=== PATIENT | female | born 1995 | race Hispanic/Latino ===

== ENCOUNTER 2018-04-27 10:36 | Emergency (ER) | payer OTHER ==
[2018-04-27] MEDS ORDERED: LIDOCAINE HCL 2% VISCOUS 15 ML UDCUP ONE (11:03)
== END 2018-04-27 11:39 | disposition home or self-care (01) ==
LOC: EDH 10:36
DX: F41.9 Anxiety disorder, unspecified (principal); K08.89 Other specified disorders of teeth and supporting structures; R06.4 Hyperventilation; Z88.1 Allergy status to other antibiotic agents